=== PATIENT | male | born 1970 | race Two or more races ===

== ENCOUNTER 2020-05-29 18:56 | Emergency (ER) | payer MEDICAID ==
[~2020-05-29] VITALS: Ht 177.8 cm; Wt 93.0 kg
[2020-05-29 22:14] VITALS: BP 141/103
[2020-05-29] MEDS: KETOROLAC TROMETH 60MG/2ML VIAL IM ONE (22:15)
== END 2020-05-29 23:46 | disposition home or self-care (01) ==
LOC: ER 19:00
DX: K64.8 Other hemorrhoids (principal); K62.89 Other specified diseases of anus and rectum
CPT/HCPCS: 96372; 99283; J1885

== ENCOUNTER 2025-06-30 12:23 | Inpatient (IN) | payer MEDICAID ==
[~2025-06-30] VITALS: Ht 162.6 cm; Wt 100.0 kg
[2025-06-30 13:56] LABS: Hematocrit 47.0 % (41.0-53.0); Hemoglobin 16.5 g/dL (13.5-17.5); Mean Corpuscular Hemoglobin 34.2 pg (28.0-32.0); Mean Corpuscular Volume 97.1 fL (80.0-100.0); Nucleated Red Blood Cells % 0.1 %
[2025-06-30 14:06] LABS: Chloride 105 mmol/L (98-107); Potassium 4.4 mmol/L (3.5-5.1); Sodium 141 mmol/L (136-145)
[2025-06-30 14:07] LABS: Anion Gap 6 (5-15); Calcium 9.8 mg/dL (8.7-10.4); Carbon Dioxide 30 mmol/L (20-31)
[2025-06-30 14:12] LABS: BUN/Creatinine Ratio 9.7 (10.0-20.0); Blood Urea Nitrogen 10 mg/dL (9-23); Glucose 87 mg/dL (74-106)
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
--- NOTE | 2025-06-30 14:24 | ED.PDOC ---
History of Present Illness HPI Comments 55-year-old male presents to the ER with a chief complaint of back pain. Patient reports on having had a sudden onset of back pain seven days ago which is currently on and off associated with blurred vision and nausea. Patient notes that the back pain is to the cervical area of the back. Denies any other symptoms at this time. Denies chills, fever, /V/D, SOB, CP. No other associated symptoms, modifiers, recent injuries or sick contacts present at this time. Chief Complaint: Back Pain Time Seen by MD: 14:20 Primary Care Provider: DENIES Reviewed Notes: Nurses Notes, Medications, Allergies Allergies: Coded Allergies: NO KNOWN ALLERGIES (Unverified , 05/29/20) Information Source: Patient Mode of Arrival: Ambulatory Severity: Moderate Timing: Days Duration: Since onset, Days Prehospital treatment: None Past Medical History PAST MEDICAL HISTORY: Denies Surgical History: Denies all surgeries Family History Family History: Reviewed,noncontributory to illness, No family hx of Cancer, No family hx of DM, No family hx of Heart robbin, No family hx of HTN, No family hx ofKidney robbin, No family hx of Liver robbin, No family hx of Lung robbin, No family hx of Stroke Social History Smoker: Non-Smoker Alcohol: Denies ETOH Use Drugs: Denies Drug Use Lives In: Home Constitutional: denies: chills, diaphoresis, fatigue, fever, malaise, sweats, weakness, others EENTM: reports: blurred vision; denies: double vision, ear bleeding, ear discharge, ear drainage, ear pain, ear ringing, eye pain, eye redness, hearing loss, mouth pain, mouth swelling, nasal discharge, nose bleeding, nose congestion, nose pain, photophobia, tearing, throat pain, throat swelling, voice changes, others Respiratory: denies: cough, hemoptysis, orthopnea, SOB at rest, shortness of breath, SOB with excertion, stridor, wheezing, others Cardiovascular: denies: chest pain, dizzy spells, diaphoresis, Dyspnea on exertion, edema, irregular heart beat, left arm pain, lightheadedness, palpitations, PND, syncope, others Gastrointestinal: denies: abdomen distended, abdominal pain, blood streaked bowels, constipated, diarrhea, dysphagia, difficulty swallowing, hematemesis, melena, nausea, poor appetite, poor fluid intake, rectal bleeding, rectal pain, vomiting, others Genitourinary: denies: burning, dysuria, flank pain, frequency, hematuria, incontinence, penile discharge, penile sore, pain, testicle pain, testicle swelling, urgency, others Neurological: denies: dizziness, fainting, headache, left sided numbness, left sided weakness, numbness, paresthesia, pre-existing deficit, right sided numbness, right sided weakness, seizure, speech problems, tingling, tremors, weakness, others Musculoskeletal: reports: neck pain; denies: back pain, gout, joint pain, joint swelling, muscle pain, muscle stiffness, others Integumetry: denies: bruises, change in color, change in hair/nails, dryness, laceration, lesions, lumps, rash, wounds, others Allergic/Immunocompromised: denies: Difficulty Healing, Frequent Infections, Hives, Itching, others Hematologic/Lymphatic: denies: anemia, blood clots, easy bleeding, easy bruising, swollen glands, others Endocrine: denies: excessive hunger, excessive sweating, excessive thirst, excessive urination, flushing, intolerance to cold, intolerance to heat, unex plained weight gain, unexplained weight loss, others Psychiatric: denies: anxiety, bipolar disorder, depression, hopeless, panic disorder, schizophrenia, sleepless, suicidal, others All Other Systems: Reviewed and Negative Physical Exam Exam Comments Cervical tenderness and appears uncomfortable General Appearance: No Apparent Distress, Normal HEENT: Normal ENT Inspection, Pharynx Normal, TMs Normal Neck: Full Range of Motion, Non-Tender, Normal, Normal Inspection Respiratory: Chest Non-Tender, Lungs Clear, No Accessory Muscle Use, No Respiratory Distress, Normal Breath Sounds Cardiovascular: No Edema, No JVD, No Murmur, No Gallop, Normal Peripheral Pulses, Regular Rate/Rhythm Breast Exam: Deferred Gastrointestinal: No Organomegaly, Non Tender, No Pulsatile Mass, Normal Bowel Sounds, Soft Genitalia: Deferred Pelvic: Deferred Rectal: Deferred Extremities: No calf tenderness, Normal capillary refill, Normal inspection, Normal range of motion, Non-tender, No pedal edema Musculoskeletal : Apperance: Normal Neurologic: Alert, design teacher II-XII nml as Tested, No Motor Deficits, Normal Affect, Normal Mood, No Sensory Deficits Cerebellar Function: Normal Reflexes: Normal Skin: Dry, Normal Color, Warm Lymphatic: No Adenopathy Was a procedure done? Was a procedure done?: No Differential Dx Considerations may include: ACS, CVA, viral syndrome, electrolyte abnormality, infectious etiology X-Ray, Labs, Meds, VS Vital Signs Date Time Temp Pulse Resp B/P (MAP) Pulse Ox O2 Delivery O2 Flow Rate FiO2 06/30/25 16:59 66 16 98 Room Air 06/30/25 16:59 98.5 66 16 114/73 (87) 99 98.5 06/30/25 12:36 98.0 82 16 138/101 94 98.0 Lab Test 06/30/25 15:00 06/30/25 14:32 06/30/25 13:48 Range/Units Urine Color Yellow Yellow Urine Clarity Clear Clear Urine pH 5.0 5.0-9.0 Urine Specific [place] 1.020 1.001-1.035 Urine Protein Negative Negative Urine Ketones Negative Negative Urine Blood Negative Negative /uL Urine Nitrite Negative Negative Urine Bilirubin Negative Negative Urine Urobilinogen Normal Negative mg/dL Urine Leukocyte Esterase Trace Negative /uL Urine RBC None seen 0 - 3 /hpf Urine Microscopic WBC 8 H 0-3 /HPF Urine Squamous Epithelial Cells Few <5 /hpf Urine Bacteria Few H None Seen /hpf Urine Mucus Few None Seen Urine Glucose Normal Normal mg/dL Troponin I High Sensitivity 4 4 </=54 ng/L White Blood Count 8.2 4.4-10.8 10^3/uL Red Blood Count 4.84 4.5-5.90 10^6/uL Hemoglobin 16.5 13.5-17.5 g/dL Hematocrit 47.0 41.0-53.0 % Mean Corpuscular Volume 97.1 80.0-100.0 fL Mean Corpuscular Hemoglobin 34.2 H 28.0-32.0 pg Mean Corpuscular Hemoglobin Concent 35.2 32.0-36.0 g/dL Red Cell Distribution Width 14.3 11.8-14.3 % Platelet Count 145 140-450 10^3/uL Mean Platelet Volume 9.2 6.9-10.8 fL Neutrophils (%) (Auto) 76.8 37.0-80.0 % Lymphocytes (%) (Auto) 12.4 10.0-50.0 % Monocytes (%) (Auto) 8.8 0.0-12.0 % Eosinophils (%) (Auto) 1.4 0.0-7.0 % Basophils (%) (Auto) 0.6 0.0-2.0 % Neutrophils # (Auto) 6.3 1.6-8.6 10 ^3/uL Lymphocytes # (Auto) 1.0 0.4-5.4 10 ^3/uL Monocytes # (Auto) 0.7 0-1.3 10 ^3/uL Eosinophils # (Auto) 0.1 0-0.8 10 ^3/uL Basophils # (Auto) 0 0-0.2 10 ^3/uL Nucleated Red Blood Cells 0.1 % Sodium Level 141 136-145 mmol/L Potassium Level 4.4 3.5-5.1 mmol/L Chloride Level 105 98-107 mmol/L Carbon Dioxide Level 30 20-31 mmol/L Anion Gap 6 5-15 Blood Urea Nitrogen 10 9-23 mg/dL Creatinine 1.03 0.700-1.30 mg/dL Glomerular Filtration Rate Calc 85 >90 mL/min BUN/Creatinine Ratio 9.7 L 10.0-20.0 Serum Glucose 87 74-106 mg/dL Calcium Level 9.8 8.7-10.4 mg/dL B-Type Natriuretic Peptide 8.64 0-100 pg/mL Current Medications Medications (Trade) Dose Ordered Sig/Trell Route Start Time Stop Time Status Last Admin Acetaminophen/ Hydrocodone Bitart ([place] 5/325MG Tab) 1 tab ONCE ONCE PO 06/30/25 17:45 06/30/25 17:46 DC 06/30/25 17:40 Time of 1ST Reevaluation: 14:50 Reevaluation 1ST: Unchanged Patient Education/Counseling: Diagnosis, Treatment, Prognosis Family Education/Counseling: No Family Present SEPSIS Sepsis Screen Date sepsis recognized/suspect: Jun 30, 2025 Time Sepsis recognized/suspect: 1239 Recent Procedure: No On Antibiotic Therapy: No Respiratory Rate >20: No Heart Rate >90: No Temp<36 C (96.8 F) or >38.3 C: No SBP <90 or MAP <65 mmHG: No New Acute Mental Status Change: No Is the patient on CPAP, BIPAP,: No Physician Orders Chest Portable (06/30/25 13:36) Head Without Contrast (06/30/25 13:36) Vital Signs Date Time Temp Pulse Resp B/P (MAP) Pulse Ox O2 Delivery O2 Flow Rate FiO2 06/30/25 16:59 66 16 98 Room Air 06/30/25 16:59 98.5 66 16 114/73 (87) 99 98.5 06/30/25 12:36 98.0 82 16 138/101 94 98.0 Laboratory Tests Test 06/30/25 13:48 White Blood Count 8.2 10^3/uL (4.4-10.8) Medications Medications Dose Ordered Sig/Trell Route Start Time Stop Time Status Last Admin Dose Admin Acetaminophen/ Hydrocodone Bitart 1 tab ONCE ONCE PO 06/30/25 17:45 06/30/25 17:46 DC 06/30/25 17:40 Departure 1 Departure Time of Disposition: 18:18 (Patient presents with dizziness nausea and vomiting concerning for autonomic dysfunction versus possible CVA. We will admit patient for further workup and expert consultation) Impression: Primary Impression: Autonomic dysfunction Additional Impressions: Blurry vision Generalized weakness Near syncope Disposition: 09 ADMITTED INPATIENT Admit to: Tele Condition: Guarded Critical Care Note Critical Care Time?: No Stability Stability form required: No I personally scribed for RAYNA LAND MD ([email or web address]) on 06/30/25 at 14:24. Electronically submitted by Michael Adams ([email or web address]). RAYNA LAND MD Jun 30, 2025 14:24
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
[2025-06-30 15:18] LABS: Urine Protein, UAD Negative (Negative)
[2025-06-30] MEDS: HYDROcodone-ACET 5/325MG TAB PO ONE (17:40)
[2025-07-01] VITALS (10 sets, daily range): BP systolic 122–154; BP diastolic 71–86; PULSE 65–103; RESP 15–20; TEMP 98–99.5; O2SAT 95–100
[2025-07-01] MEDS ORDERED: MORPHINE SULFATE INJ 2 MG/ml SYRG IV PRN
[2025-07-01] MEDS ORDERED: NITROGLYCERIN 0.4 MG SL TAB SL PRN
[2025-07-01] MEDS ORDERED: TEMAZEPAM 15 MG CAP PO PRN (00:45)
[2025-07-01] MEDS ORDERED: ONDANSETRON HCL 4 MG/2 ML VIAL IV PRN (00:45)
[2025-07-01] MEDS ORDERED: ACETAMINOPHEN 325 MG TAB PO PRN (00:45)
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
[2025-07-01] MEDS: BACLOFEN 10 MG TAB PO ONE (01:35)
[2025-07-01] MEDS: HYDROcodone-ACET 5/325MG TAB PO PRN (01:35)
[2025-07-01 06:13] LABS: Chloride 104 mmol/L (98-107); Potassium 3.9 mmol/L (3.5-5.1); Sodium 141 mmol/L (136-145)
[2025-07-01 06:14] LABS: Anion Gap 11 (5-15); Carbon Dioxide 26 mmol/L (20-31)
[2025-07-01 06:15] LABS: Calcium 9.2 mg/dL (8.7-10.4)
[2025-07-01 06:19] LABS: BUN/Creatinine Ratio 10.5 (10.0-20.0); Glucose 92 mg/dL (74-106)
[2025-07-01 06:21] LABS: Blood Urea Nitrogen 9 mg/dL (9-23); Cholesterol 153 mg/dL (< 200); HDL Cholesterol 30 mg/dL (40-59); Triglycerides 182 mg/dL (< 150)
[2025-07-01] MEDS: LISINOPRIL 5 MG TAB PO SCH (09:57)
[2025-07-01] MEDS: KETOROLAC TROMETH 30 MG/ML 1ML VIAL IV PRN (12:27)
--- NOTE | 2025-07-01 17:26 | DVHPNRES ---
Progress Note Date Seen: Jul 01, 2025 Resident Creating Document: HAWK CHRISTIANSON RESIDENT Has the PT tested + for MRSA If YES, has PT been informed?: No Medical Necessity Reason Pt with a Central, PICC or Fol: No Subjective Review of Systems Patient 55 y old male with past medical history of gout, TIA 2023 came to ER with a complaint of chest pain for 2 days which is intermittent in nature, showed, 8/10 intensity, aggravated on movement, pain is reproducible when palpate on the chest wall, no radiation, no relieving factor. 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 Patient also reported occasional headache and blurry vision but denies any recent fall or trauma. Denies any fever, SOB, headache, photophobia, abdominal pain, dysuria or any focal weakness. Past medical history: Gout, TIA 2023 Past surgical history: Nothing contributory Family history: Nothing contributory Personal history: Ex-smoker, ETOH occasionally, denies any illicit drug use Allergy: No known allergy PCP: Not selected Objective vital signs Vital Sign Date Time Temp Pulse Resp B/P (MAP) Pulse Ox O2 Delivery O2 Flow Rate FiO2 07/01/25 13:00 98.7 91 122/71 (88) 95 98.7 07/01/25 09:58 15 07/01/25 08:00 Room Air* 0 21 Total Intake and Output 06/30/25 06/30/25 07/01/25 15:00 23:00 07:00 Intake Total 100 ml Balance 100 ml medications Current Medications Medications Dose Ordered Sig/Trell Route Start Time Stop Time Status Last Admin Dose Admin Nitroglycerin 0.4 mg Q5MINP PRN SL 07/01/25 00:00 Morphine Sulfate 2 mg Q30M PRN IV 07/01/25 00:00 Lisinopril 10 mg DAILY PO 07/01/25 10:00 07/01/25 09:57 10 MG Aspirin 81 mg DAILY PO 07/01/25 10:00 Atorvastatin Calcium 10 mg HS PO 07/01/25 22:00 Clonidine HCl 0.1 mg Q6HP PRN PO 07/01/25 00:45 Acetaminophen/ Hydrocodone Bitart 1 tab Q6HP PRN PO 07/01/25 00:45 07/01/25 16:40 1 TAB Temazepam 15 mg QHSP PRN PO 07/01/25 00:45 Acetaminophen 650 mg Q6HP PRN PO 07/01/25 00:45 Ketorolac Tromethamine 15 mg Q6HPRN PRN IV 07/01/25 12:00 07/06/25 11:59 07/01/25 12:27 15 MG Famotidine 40 mg DAILY PO 07/02/25 10:00 Colchicine 0.6 mg Q12HR PO 07/01/25 22:00 Examination Gen: 55-year-old male in no apparent distress. Skin: Warm, dry, normal color and texture, no rash. HEENT: Normocephalic atraumatic, mucous membranes moist and pink. Neck: Cervical and supraclavicular nodes normal without enlargement, trachea is midline, thyroid gland is normal without masses. Chest: Clear to auscultation and percussion bilaterally. Tender chest wall on deep palpation Cardiac: Regular rate and rhythm. No murmur Abdomen: Soft, nontender, nondistended, bowel sounds present all 4 quadrants, no guarding, no rigidity, no organomegaly. Extremities: No cyanosis, clubbing, no edema Neuro: Cranial nerves II through XII grossly intact, normal affect and speech, no focal motor deficits. laboratory and microbiology Laboratory Tests 07/01/25 05:11 06/30/25 13:48 Test 07/01/25 05:11 Range/Units Serum Glucose 92 74-106 mg/dL Problem List/Assessment/Plan Problem List/Assessment/Plan Chest pain likely musculoskeletal Ruled out ACS Left shoulder pain and bilateral wrist pain Troponin x2 negative Pain management Aspirin Atorvastatin GTN SL as needed Morphine if chest pain Downgrade tele to med surge Ketorolac for pain Left shoulder and bilateral wrist Monitor labs, vital Essential hypertension Lisinopril 10 mg Monitor blood pressure Dash diet History of gout S uric acid 9.1 Started colchicine Morbid obesity, BMI 37.8 Lifestyle modification Diet: Cardiac GI prophylaxis: Famotidine DVT prophylaxis" patient ambulating Goals of care discussions. 23 minute spent with patient. Full code status. Case discussed with Dr. Taylor. Plan discussed with: Patient, Other (Nurse) My Orders My Orders Orders - HA[facility] CHRISTIANSON RESIDENT Procedure Category Date Status Time Consult Care CONS 07/01/25 Transmitted Coordinator Transfer Orders XFER 07/01/25 Transmitted 11:50 Ketorolac Injection PHA 07/01/25 In Process (Toradol Injection) 12:00 Famotidine Tablet PHA 07/02/25 In Process (Pepcid Tablet) 10:00 Date of Service: Jul 01, 2025 Billing Provider: VICKI TAYLOR MD Common Visit Codes: 94010-[id number] INP/OBS CARE(HIGH) HAWK CHRISTIANSON RESIDENT Jul 01, 2025 17:26 VICKI TAYLOR MD Jul 03, 2025 15:10
[2025-07-01] MEDS: COLCHICINE 0.6 MG CAP PO ONE (17:54)
--- NOTE | 2025-07-01 18:30 | DVH ---
CLINICAL INDICATION: Wrist pain TECHNIQUE: 2 radiographic views of the left wrist were obtained. COMPARISON: None FINDINGS/IMPRESSION: Bony structures are in normal alignment. There are no fractures or dislocations. No radiopaque foreign bodies. IV is noted in the soft tissues.
--- NOTE | 2025-07-01 18:31 | DVH ---
CLINICAL INDICATION: Lt shoulder pain TECHNIQUE: 3 radiographic views of the shoulder were obtained. COMPARISON: None FINDINGS/IMPRESSION: There are no fractures or dislocations. Arthritic changes are noted at the acromial clavicular joint. Consider MRI for further evaluation.
--- NOTE | 2025-07-01 19:35 | DVH ---
CLINICAL HISTORY: Wrist pain TECHNIQUE: 2 views of the right wrist were obtained. WID: COMPARISON: XY L WRIST 2 VIEW XRAY on DOS: 07/01/25 FINDINGS: Normal mineralization and alignment. The joint spaces are preserved. No acute fracture. The overlying soft tissues are intact. IMPRESSION: 1. No acute fracture or traumatic malalignment.
[2025-07-01] MEDS: COLCHICINE 0.6 MG CAP PO SCH (21:08)
[2025-07-01] MEDS: ATORVASTATIN 20 MG TAB PO SCH (21:09)
[2025-07-02 00:36] VITALS: BP 129/82; PULSE 96; RESP 18; TEMP 98.9; O2SAT 96
[2025-07-02 04:35] VITALS: BP 119/76; PULSE 86; RESP 19; TEMP 97.7; O2SAT 96
[2025-07-02 06:43] LABS: Anion Gap 12 (5-15); Carbon Dioxide 22 mmol/L (20-31); Chloride 103 mmol/L (98-107); Potassium 3.6 mmol/L (3.5-5.1); Sodium 137 mmol/L (136-145)
[2025-07-02 06:45] LABS: Calcium 9.0 mg/dL (8.7-10.4)
[2025-07-02 06:49] LABS: BUN/Creatinine Ratio 11.8 (10.0-20.0); Blood Urea Nitrogen 11 mg/dL (9-23); Glucose 94 mg/dL (74-106)
[2025-07-02 06:50] LABS: Hemoglobin 15.4 g/dL (13.5-17.5)
[2025-07-02 06:52] LABS: Hematocrit 43.5 % (41.0-53.0); Mean Corpuscular Hemoglobin 34.4 pg (28.0-32.0); Mean Corpuscular Volume 97.4 fL (80.0-100.0); Nucleated Red Blood Cells % 0.1 %
[2025-07-02 08:00] VITALS: PULSE 84
[2025-07-02 08:45] VITALS: BP 121/70; PULSE 86; RESP 18; TEMP 98.9; O2SAT 96
[2025-07-02] MEDS: FAMOTIDINE 20 MG TAB PO SCH (09:30)
[2025-07-02] MEDS ORDERED: IBUP1TAB4 PO (10:34)
[2025-07-02] MEDS ORDERED: FAMO20TA10 PO (10:34)
[2025-07-02] MEDS ORDERED: COLC1CAP PO (10:34)
[2025-07-02] MEDS ORDERED: ERGO1CAP23 PO (10:35)
--- NOTE | 2025-07-02 11:24 | DVHDSRES ---
Discharge Summary Date of Admission Resident Creating Document: HAWK CHRISTIANSON RESIDENT Jun 30, 2025 at 23:55 Date of Discharge: Jul 02, 2025 Labs/Diagnostic Data: Laboratory Results Test 07/02/25 05:35 07/01/25 05:11 06/30/25 15:00 06/30/25 14:32 White Blood Count 9.9 10^3/uL (4.4-10.8) Red Blood Count 4.47 10^6/uL (4.5-5.90) Hemoglobin 15.4 g/dL (13.5-17.5) Hematocrit 43.5 % (41.0-53.0) Mean Corpuscular Volume 97.4 fL (80.0-100.0) Mean Corpuscular Hemoglobin 34.4 pg (28.0-32.0) Mean Corpuscular Hemoglobin Concent 35.3 g/dL (32.0-36.0) Red Cell Distribution Width 14.6 % (11.8-14.3) Platelet Count 124 10^3/uL (140-450) Mean Platelet Volume 9.5 fL (6.9-10.8) Neutrophils (%) (Auto) 78.2 % (37.0-80.0) Lymphocytes (%) (Auto) 9.0 % (10.0-50.0) Monocytes (%) (Auto) 11.8 % (0.0-12.0) Eosinophils (%) (Auto) 0.6 % (0.0-7.0) Basophils (%) (Auto) 0.4 % (0.0-2.0) Neutrophils # (Auto) 7.7 10 ^3/uL (1.6-8.6) Lymphocytes # (Auto) 0.9 10 ^3/uL (0.4-5.4) Monocytes # (Auto) 1.2 10 ^3/uL (0-1.3) Eosinophils # (Auto) 0.1 10 ^3/uL (0-0.8) Basophils # (Auto) 0 10 ^3/uL (0-0.2) Nucleated Red Blood Cells 0.1 % Sodium Level 137 mmol/L (136-145) Potassium Level 3.6 mmol/L (3.5-5.1) Chloride Level 103 mmol/L (98-107) Carbon Dioxide Level 22 mmol/L (20-31) Anion Gap 12 (5-15) Blood Urea Nitrogen 11 mg/dL (9-23) Creatinine 0.93 mg/dL (0.700-1.30) Glomerular Filtration Rate Calc 96 mL/min (>90) BUN/Creatinine Ratio 11.8 (10.0-20.0) Serum Glucose 94 mg/dL (74-106) Calcium Level 9.0 mg/dL (8.7-10.4) Vitamin B12 Level 228 pg/mL (211-911) Vitamin D 25-Hydroxy 17.7 ng/mL (30.0-100) Hemoglobin A1c 4.9 % A1C (<5.7) Uric Acid 9.1 mg/dL (3.7-9.2) Triglycerides Level 182 mg/dL (< 150) Cholesterol Level 153 mg/dL (< 200) LDL Cholesterol 102 mg/dL (< 100) HDL Cholesterol 30 mg/dL (40-59) Thyroid Stimulating Hormone (TSH) 3.12 uIU/mL (0.55-4.78) Urine Color Yellow (Yellow) Urine Clarity Clear (Clear) Urine pH 5.0 (5.0-9.0) Urine Specific [place] 1.020 (1.001-1.035) Urine Protein Negative (Negative) Urine Ketones Negative (Negative) Urine Blood Negative /uL (Negative) Urine Nitrite Negative (Negative) Urine Bilirubin Negative (Negative) Urine Urobilinogen Normal mg/dL (Negative) Urine Leukocyte Esterase Trace /uL (Negative) Urine RBC None seen /hpf (0 - 3) Urine Microscopic WBC 8 /HPF (0-3) Urine Squamous Epithelial Cells Few /hpf (<5) Urine Bacteria Few /hpf (None Seen) Urine Mucus Few (None Seen) Urine Glucose Normal mg/dL (Normal) Troponin I High Sensitivity 4 ng/L (</=54) Test 06/30/25 13:48 B-Type Natriuretic Peptide 8.64 pg/mL (0-100) Other Laboratory Tests 07/02/25 05:35 Brief Hx & Hospital Course: Patient 55-year-old old male with past medical history of gout, TIA 2023 came to ER with a complaint of chest pain for 2 days which is intermittent in nature, showed, 8/10 intensity, aggravated on movement, pain is reproducible when palpate on the chest wall, no radiation, no relieving factor. 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 Patient also reported occasional headache and blurry vision but denies any recent fall or trauma. Denies any fever, SOB, headache, photophobia, abdominal pain, dysuria or any focal weakness. Past medical history: Gout, TIA 2023 Past surgical history: Nothing contributory Family history: Nothing contributory Personal history: Ex-smoker, ETOH occasionally, denies any illicit drug use Allergy: No known allergy PCP: Not selected Hospital course: Patient admitted due to chest pain secondary to costochondritis(musculoskeletal). Chest x-ray shows no acute cardiopulmonary disease. CT head shows no acute intracranial abnormality. X-ray left shoulder shoulder showed arthritic changes at the acromioclavicular joint. Patient also complained of bilateral wrist pain and joint pain phillips hands. X-ray shows no acute fracture or dislocation. Serum uric acid level 9.1 and started colchicine, patient pain significantly improved. Patient having high BMI, recommended weight loss and lifestyle modification. During discharge on 07/02/2025, patient denies any SOB, chest pain, headache, cough, abdominal pain, dysuria or any other focal weakness. Patient is hemodynamically stable for discharge. Patient has received maximum benefit from inpatient treatment. Time was given to answer patient's questions and concerns in layman terms and explained by RN. Patient verbalized understanding and agreed with treatment and follow-up. Patient was recommended to return to ER if he experiences any worsening symptoms not limited to current symptoms. Follow-up with PCP and outpatient clinic Tuesday morning. Medications sent to pharmacy. Physical examination Gen: Not apparent any distress. Skin: Warm, dry, normal color and texture, no rash. HEENT: Normocephalic atraumatic, mucous membranes moist and pink. Neck: Cervical and supraclavicular nodes normal without enlargement, trachea is midline, thyroid gland is normal without masses. Chest: Clear to auscultation and percussion bilaterally. Cardiac: Regular rate and rhythm. No murmur Abdomen: Soft, nontender, nondistended, bowel sounds present all 4 quadrants, no guarding, no rigidity, no organomegaly. Extremities: No cyanosis, clubbing, no edema Neuro: Cranial nerves II through XII grossly intact, normal affect and speech, no focal motor deficits. More than 27 minute spent with patient. Case discussed with patient, nurse, Dr. Taylor. Condition at Discharge: Stable Final Diagnosis/Problems List Chest pain due to costochondritis (musculoskeletal) Ruled out ACS Left shoulder pain and bilateral wrist pain Hypertension Gout VITAMIN-D DEFICIENCY Morbid obesity, BMI 37.8 Discharge Disposition: Home Discharge Instruct/Medications Diet: Regular Activity: No Restrictions, As Tolerated Follow Up/Referral: PCP Outpatient clinic Tuesday morning within week after discharge Scheduled Colchicine (Colchicine), 0.6 MG PO BID Ergocalciferol (Vitamin D 07438 Unit), 50,000 UNIT PO weekly Famotidine (Pepcid Tablet), 1 TAB PO BID Ibuprofen Micronized (Ibuprofen), 400 MG PO TID Discharge Statement: "Patient was advised to return to the ER or call 911 if any headaches, dizziness, shortness of breath, chest pain, abdominal pain, bleeding, fevers, or worsening of medical condition. Patient was counseled about treatment plan, medications, possible side effects, patientverbalized understanding. All questions were answered to the best of my ability. This discharge took greater then 30 minutes in planning, reviewing documentation, counseling the patient, and discussing with other team members." ASSESSMENT ASSESSMENT Assessment Costochondritis. Visit Coding STANDARD RES Billing Provider: VICKI TAYLOR MD Date of Service if different f: Jul 02, 2025 Common Visit Codes: 49302-HYR/OBS DISCH DAY >30min HAWK CHRISTIANSON RESIDENT Jul 02, 2025 11:24 VICKI TAYLOR MD Jul 03, 2025 15:16
[2025-07-02 12:35] VITALS: BP 124/76; PULSE 74; RESP 19; TEMP 98.4; O2SAT 97
--- NOTE | 2025-07-02 16:22 | DVHSR ---
APPROVED REPORT EXAM: Two-dimensional and M-mode echocardiogram with Doppler and color Doppler. Blood Pressure: 119/76 mmHg INDICATION Chest Pain RISK FACTORS Height: 5'4, Weight: 220 DIMENSIONS LVDd 4.5 (3.8-5.7cm) LA (2D) 4.1 (1.9-4.0cm) Aortic Root 3.9 (2.0-3.7cm) LVDs 2.8 (2.5-4.0cm) LA (MM) (1.9-4.0cm) Aortic Cusp Exc 2.3 (1.5-2.0cm) EF (%) 60.0 (55-70%) Rt. Atrium 5.1 (1.9-4.0cm) Asc. Aorta 3.6 cm IVSd 0.9 (0.7-1.1cm) RV (D) 4.1 (1.8-2.4cm) PWd 1.1 (0.7-1.1cm) Mitral Valve Mitral Mitral Stenosis E wave 0.77m/s MV Mean GR. mmHg A wave 0.78m/s MV Peak GR. 70mmHg E/A ratio 1.0 2D MVA cm2 DECEL Time 278ms PRESS 1/2 Time ms Aortic Valve Aortic Valve Aortic Stenosis V1 0.95m/s AO Mean GR. 4mmHg V2 1.32m/s AO Peak GR. 7mmHg LVOT Diameter 2.4 (1.8-2.4cm) Doppler PRASAD 3.25cm2 Pulmonic Valve V2 1.29m/s Tricuspid Valve TR Velocity 2.12m/s RVSP 21mmHg Conclusion lvef 60% normal lv function rv enlarged biatrial enlargement no severe valve abnormality noted
== END 2025-07-02 14:45 | disposition home or self-care (01) | DRG 203 ==
LOC: ER 12:23 → OVERFLOW 23:55 → WEST WING 07-01 22:55
PROVIDERS: ADMIT Student in an Organized Health Care Education/Training Program; ATTEND Student in an Organized Health Care Education/Training Program
DX: M94.0 Chondrocostal junction syndrome [Tietze] (principal); I16.0 Hypertensive urgency; E66.01 Morbid (severe) obesity due to excess calories; I10 Essential (primary) hypertension; E55.9 Vitamin D deficiency, unspecified; Z68.37 Body mass index [BMI] 37.0-37.9, adult; Z86.73 Personal history of transient ischemic attack (TIA), and cerebral infarction without residual deficits; M10.9 Gout, unspecified; Z79.899 Other long term (current) drug therapy
CPT/HCPCS: 36415; 70450; 71045; 73030; 73100; 80048; 80061; 81001; 82306; 82607; 83036; 83880; 84443; 84484; 84550; 85025; 93306; G0378; J1885